=== PATIENT | male | born 2000 | race Caucasian/White ===

== ENCOUNTER 2022-10-01 11:52 | Emergency (ER) | payer OTHER ==
[2022-10-01 12:26] VITALS: BP 118/80; PULSE 82; RESP 20; TEMP 97.6
--- NOTE | 2022-10-01 12:45 | ED ---
General Adult HPI - General Source: patient, RN notes reviewed Mode of arrival: ambulatory Limitations: no limitations <Hawa Steen - Last Filed: 10/01/22 14:32> <Roldan Botello - Last Filed: 10/01/22 22:14> - General Chief complaint: Abdominal Pain Stated complaint: urogenital (swelling) Time Seen by Provider: 10/01/22 12:29 - History of Present Illness Initial comments: 2-year-old male in for testicular swelling. He notes he sat in a friend's car on Monday09/27/2022 and then noticed his left testicle to be swollen. He admits to it being painful due to being swollen. He has had this b efore but has never been evaluated for it. He has not tried anything for his symptoms. He denies abdominal pain, nausea, vomiting, diarrhea, constipation, dysuria, hematuria. Denies history of trauma, varicocele, or testicular torsion. (Hawa Steen) - Related Data Allergies Allergy/AdvReac Type Severity Reaction Status Date / Time No Known Allergies Allergy Verified 10/01/22 12:26 Review of Systems ROS Other: All systems not noted in ROS Statement are negative. <Hawa Steen - Last Filed: 10/01/22 14:32> ROS Other: All systems not noted in ROS Statement are negative. <Roldan Botello - Last Filed: 10/01/22 22:14> ROS Statement: Those systems with pertinent positive or pertinent negative responses have been documented in the HPI. Past Medical History Past Medical History: No Reported History History of Any Multi-Drug Resistant Organisms: None Reported Past Surgical History: No Surgical Hx Reported Past Psychological History: No Psychological Hx Reported Smoking Status: Vaper Past Alcohol Use History: None Reported Past Drug Use History: Marijuana <Hawa Steen - Last Filed: 10/01/22 14:32> General Exam Limitations: no limitations General appearance: alert, in no apparent distress Head exam: Present: atraumatic, normocephalic, normal inspection Eye exam: Present: normal appearance, PERRL, EOMI. Absent: scleral icterus, conjunctival injection, periorbital swelling ENT exam: Present: normal exam, mucous membranes moist Neck exam: Present: normal inspection. Absent: tenderness, meningismus, lymphadenopathy Respiratory exam: Present: normal lung sounds bilaterally. Absent: respiratory distress, wheezes, rales, rhonchi, stridor Cardiovascular Exam: Present: regular rate, normal rhythm, normal heart sounds. Absent: systolic murmur, diastolic murmur, rubs, gallop, clicks GI/Abdominal exam: Present: soft, normal bowel sounds. Absent: distended, tenderness, guarding, rebound, rigid Expanded exam: Testicular Tenderness: Left, Testicular Swelling: Left (RNKenia pre sent as piling cutter during the exam. L inguinal hernia. ), Cremasteric Reflex Present: Left, Right Extremities exam: Present: normal inspection, full ROM, normal capillary refill. Absent: tenderness, pedal edema, joint swelling, calf tenderness Neurological exam: Present: alert, oriented X3, CN II-XII intact <Hawa Steen - Last Filed: 10/01/22 14:32> Course Vital Signs 10/01/22 12:24 Temperature 97.6 F Pulse Rate 82 Respiratory 20 Rate Blood Pressure 118/80 O2 Sat by Pulse 98 Oximetry Medical Decision Making - Lab Data Result diagrams: 10/01/22 14:01 10/01/22 14:01 <Hawa Steen - Last Filed: 10/01/22 14:32> - Lab Data Result diagrams: 10/01/22 14:01 10/01/22 14:01 <Roldan Botello - Last Filed: 10/01/22 22:14> - Medical Decision Making 22 year old male coming in to be evaluated for testicular swelling. Pt had a scrotal US, which was negative for torsion but revealed inguinal hernia to left testicle. Labs unremarkable. Pt was given morphine with symptomatic improvement in the ED. Encouraged to follow up with Dr. Aguila, General Surgery. All questions and concerns addressed. Case discussed with Dr. Botello. (Hawa Steen) Hernia was not concerning for incarceration or strangulation at this time. Patient is resting comfortably. We did attempt reduction for comfort, however t his was unsuccessful. Instructed the patient to follow up with surgery for further evaluation. Strict return precautions were discussed. (Roldan Botello) - Lab Data Lab Results 10/01/22 10/01/22 10/01/22 Range/Units 14:01 14:01 14:01 WBC 9.4 (3.8-10.6) k/uL RBC 4.65 (4.30-5.90) m/uL Hgb 15.2 (13.0-17.5) gm/dL Hct 42.8 (39.0-53.0) % MCV 92.0 (80.0-100.0) fL MCH 32.7 (25.0-35.0) pg MCHC 35.5 (31.0-37.0) g/dL RDW 11.8 (11.5-15.5) % Plt Count 213 (150-450) k/uL MPV 8.8 Neutrophils % 57 % Lymphocytes % 29 % Monocytes % 8 % Eosinophils % 2 % Basophils % 1 % Neutrophils # 5.3 (1.3-7.7) k/uL Lymphocytes # 2.7 (1.0-4.8) k/uL Monocytes # 0.7 (0-1.0) k/uL Eosinophils # 0.2 (0-0.7) k/uL Basophils # 0.1 (0-0.2) k/uL Sodium 142 (137-145) mmol/L Potassium 4.0 (3.5-5.1) mmol/L Chloride 106 (98-107) mmol/L Carbon Dioxide 26 (22-30) mmol/L Anion Gap 10 mmol/L BUN 19 (9-20) mg/dL Creatinine 0.82 (0.66-1.25) mg/dL Est GFR (CKD-EPI)AfAm >90 (>60 ml/min/1.73 sqM) Est GFR (CKD-EPI)NonAf >90 (>60 ml/min/1.73 sqM) Glucose 79 (74-99) mg/dL Plasma Lactic Acid Francisco Javier 0.8 (0.7-2.0) mmol/L Calcium 9.4 (8.4-10.2) mg/dL Urine Color Urine Appearance (Clear) Urine pH (5.0-8.0) Ur Specific [place] (1.001-1.035) Urine Protein (Negative) Urine Glucose (UA) (Negative) Urine Ketones (Negative) Urine Blood (Negative) Urine Nitrite (Negative) Urine Bilirubin (Negative) Urine Urobilinogen (<2.0) mg/dL Ur Leukocyte Esterase (Negative) 10/01/22 Range/Units 14:39 WBC (3.8-10.6) k/uL RBC (4.30-5.90) m/uL Hgb (13.0-17.5) gm/dL Hct (39.0-53.0) % MCV (80.0-100.0) fL MCH (25.0-35.0) pg MCHC (31.0-37.0) g/dL RDW (11.5-15.5) % Plt Count (150-450) k/uL MPV Neutrophils % % Lymphocytes % % Monocytes % % Eosinophils % % Basophils % % Neutrophils # (1.3-7.7) k/uL Lymphocytes # (1.0-4.8) k/uL Monocytes # (0-1.0) k/uL Eosinophils # (0-0.7) k/uL Basophils # (0-0.2) k/uL Sodium (137-145) mmol/L Potassium (3.5-5.1) mmol/L Chloride (98-107) mmol/L Carbon Dioxide (22-30) mmol/L Anion Gap mmol/L BUN (9-20) mg/dL Creatinine (0.66-1.25) mg/dL Est GFR (CKD-EPI)AfAm (>60 ml/min/1.73 sqM) Est GFR (CKD-EPI)NonAf (>60 ml/min/1.73 sqM) Glucose (74-99) mg/dL Plasma Lactic Acid Francisco Javier (0.7-2.0) mmol/L Calcium (8.4-10.2) mg/dL Urine Color Yellow Urine Appearance Clear (Clear) Urine pH 6.5 (5.0-8.0) Ur Specific [place] 1.025 (1.001-1.035) Urine Protein Negative (Negative) Urine Glucose (UA) Negative (Negative) Urine Ketones Negative (Negative) Urine Blood Negative (Negative) Urine Nitrite Negative (Negative) Urine Bilirubin Negative (Negative) Urine Urobilinogen <2.0 (<2.0) mg/dL Ur Leukocyte Esterase Negative (Negative) Disposition Is patient prescribed a controlled substance at d/c from ED?: No Time of Disposition: 15:14 <Hawa Steen - Last Filed: 10/01/22 14:32> <Roldan Botello - Last Filed: 10/01/22 22:14> Clinical Impression: Inguinal hernia of left side without obstruction or gangrene Disposition: HOME SELF-CARE Condition: Stable Additional Instructions: If worsening symptoms or symptoms persist, if there becomes redness, swelling, or constipation please return to the ED. Referrals: Byron Mills DO [Doctor of Osteopathic Medicine] - 1-2 days None,Stated [Primary Care Provider] - 1-2 days
--- NOTE | 2022-10-01 13:30 | US ---
EXAMINATION TYPE: US scrotum with doppler. Grayscale and color Doppler Duplex imaging performed of silva morton scrotum. DATE OF EXAM: 10/01/2022 COMPARISON: NONE CLINICAL HISTORY: Left scrotal swelling x 5 days. Intermittent swelling every few months EXAM MEASUREMENTS: TESTICLES: Right Testicle: 4.7 x 2.6 x 2.9 cm Left Testicle: 4.7 x 2.9 x 2.5 cm EPIDIDYMIS HEAD: Right Epididymis: 0.59 cm Left Epididymis: 0.50 cm Doppler performed to assess for testicular vascularity; good bilateral color flow and waveforms are s een. There is no evidence of testicular torsion. Presence of hydroceles: Left Presence of varicoceles: Slight prominent vessels left scrotum without dilation upon valsalva. Left inguinal hernia visualized, more prominent with valsalva. No peristalsis present in herniated c ontents. IMPRESSION: 1. Trace hydrocele on the left. 2. No evidence intratesticular mass. 3. Appropriate arterial and spectral venous waveforms to the testes. 4. Left fat-containing inguinal hernia
[2022-10-01] MEDS ORDERED: MORPHINE SULFATE 2 MG/ML SYRINGE IVP ONE (13:48)
[2022-10-01 14:07] LABS: Basophils # (A) 0.1 k/uL (0-0.2); Basophils % (A) 1 %; Eosinophils # (A) 0.2 k/uL (0-0.7); Eosinophils % (A) 2 %; HCT 42.8 % (39.0-53.0); HGB 15.2 gm/dL (13.0-17.5); Lymphocytes # (A) 2.7 k/uL (1.0-4.8); Lymphocytes % (A) 29 %; MCH 32.7 pg (25.0-35.0); MCHC 35.5 g/dL (31.0-37.0); Mean Platelet Volume 8.8; Monocytes # (A) 0.7 k/uL (0-1.0); Monocytes % (A) 8 %; Neutrophils # (A) 5.3 k/uL (1.3-7.7); Neutrophils % (A) 57 %; Platelet Count 213 k/uL (150-450); RBC 4.65 m/uL (4.30-5.90); RDW 11.8 % (11.5-15.5); WBC 9.4 k/uL (3.8-10.6)
[2022-10-01 14:16] LABS: African American GFR (CKD) >90 (>60 ml/min/1.73 sqM); Anion Gap 10 mmol/L; Blood Urea Nitrogen 19 mg/dL (9-20); Calcium 9.4 mg/dL (8.4-10.2); Carbon Dioxide 26 mmol/L (22-30); Chloride 106 mmol/L (98-107); Glucose 79 mg/dL (74-99); Non-African American GFR(CKD) >90 (>60 ml/min/1.73 sqM); Sodium 142 mmol/L (137-145)
[2022-10-01 14:56] LABS: Appearance,Urine Clear (Clear); Bilirubin,Urine Negative (Negative); Blood,Urine Negative (Negative); Color,Urine Yellow; Glucose,Urine (UA) Negative (Negative); Ketones,Urine Negative (Negative); Leukocyte Esterase,Urine Negative (Negative); Nitrite,Urine Negative (Negative); PH, Urine 6.5 (5.0-8.0); Protein,Urine Negative (Negative); Specific Gravity,Urine 1.025 (1.001-1.035); Urobilinogen,Urine <2.0 mg/dL (<2.0)
== END 2022-10-01 16:06 | disposition home or self-care (01) ==
LOC: EC 11:52
DX: K40.90 Unilateral inguinal hernia, without obstruction or gangrene, not specified as recurrent (principal); F17.290 Nicotine dependence, other tobacco product, uncomplicated; F12.90 Cannabis use, unspecified, uncomplicated
CPT/HCPCS: 36415; 80048; 83605; 85025; 81003; 93975; 76870; 99284; 96374; J2270